=== PATIENT | male | born 1960 | race Caucasian/White ===

== ENCOUNTER 2017-09-12 16:31 | Emergency (ER) | payer MEDICAID ==
[~2017-09-12] VITALS: Ht 604 cm; Wt 77.0 kg
[~2017-09-12 16:31] MED LIST: NO HOME MEDS
[2017-09-12 16:41] VITALS: BP 117/77
[2017-09-12] MEDS ORDERED: AMOX-419 PO (17:45)
== END 2017-09-12 17:49 | disposition home or self-care (01) ==
LOC: ER 16:32
DX: J32.0 Chronic maxillary sinusitis (principal); F15.90 Other stimulant use, unspecified, uncomplicated; K21.9 Gastro-esophageal reflux disease without esophagitis; Z79.899 Other long term (current) drug therapy; Z56.0 Unemployment, unspecified
CPT/HCPCS: 70220; 99284

== ENCOUNTER 2019-12-17 12:26 | Emergency (ER) | payer MEDICAID ==
[~2019-12-17] VITALS: Ht 175.3 cm; Wt 72.0 kg
--- NOTE | 2019-12-17 14:42 | NUR ---
PT DOING WELL WITH APPLE SAUCE AND CRACKERS. NOW EATING A SANDWICH.
[2019-12-17] MEDS ORDERED: MIDAZolam 5mg/5ml vial ONE (17:03)
[2019-12-17] MEDS ORDERED: fentaNYL/PF 50MCG/1 ML 2ML syringe ONE (17:03)
[2019-12-17] MEDS ORDERED: LIDOcaine Viscous 15ml cup ONE (17:04)
[2019-12-17 17:10] VITALS: BP 115/69
--- NOTE | 2019-12-17 17:14 | NUR ---
PT IS GOING TO GI LAB TO HAVE SCOPE OF THROAT. IV STARTED. PT WILL COME BACK WHEN DONE. DID NOT KEEP SANDWICH DOWN.
--- NOTE | 2019-12-17 18:03 | NUR ---
pt is back from GI lab and they were not able to do the procedure due to the pt having had some food before going. pt was told that if he comes in at 7am tomorrow then they can do the scope at 8:30am as long as he has not had any food.
== END 2019-12-17 18:19 | disposition home or self-care (01) ==
LOC: ER 12:27
DX: R13.10 Dysphagia, unspecified (principal); K21.9 Gastro-esophageal reflux disease without esophagitis; F41.9 Anxiety disorder, unspecified; F32.9 Major depressive disorder, single episode, unspecified; F15.90 Other stimulant use, unspecified, uncomplicated; Z59.0 Homelessness; Z56.0 Unemployment, unspecified; Z72.89 Other problems related to lifestyle
CPT/HCPCS: 99283; J2250; J3010; J7040; 99281; A4620

== ENCOUNTER 2020-01-08 20:28 | Emergency (ER) | payer MEDICAID ==
[~2020-01-08] VITALS: Ht 175.3 cm; Wt 79.0 kg
[2020-01-08 20:48] VITALS: BP 121/80
--- NOTE | 2020-01-08 21:54 | NUR ---
PT SEEN AND DC'D BY PROVIDER
== END 2020-01-08 21:54 | disposition home or self-care (01) ==
LOC: ER 20:29
DX: F15.90 Other stimulant use, unspecified, uncomplicated (principal); K21.9 Gastro-esophageal reflux disease without esophagitis; F41.9 Anxiety disorder, unspecified; F32.9 Major depressive disorder, single episode, unspecified; Z98.890 Other specified postprocedural states; Z72.89 Other problems related to lifestyle; Z56.0 Unemployment, unspecified; Z59.0 Homelessness
CPT/HCPCS: 99281

== ENCOUNTER 2020-01-18 10:55 | Observation (INO) | payer MEDICAID ==
[~2020-01-18] VITALS: Ht 175.3 cm; Wt 78.6 kg
[2020-01-18] VITALS (13 sets, daily range): BP systolic 110–140; BP diastolic 61–83
[2020-01-18] MEDS ORDERED: magnesium 2GM in 50ml NS 50 ML IV PRN (12:45)
[2020-01-18] MEDS ORDERED: normal saline 1000ML IV soln IVB ONE (12:45)
[2020-01-18] MEDS ORDERED: magnesium hydroxide 30ml (MOM) UD suspension PO PRN (12:45)
[2020-01-18] MEDS ORDERED: pantoprazole 40 MG vial IV SCH (12:45)
[2020-01-18] MEDS ORDERED: mag hydrox/Alum hydrox/simeth 30ml oral suspension PO PRN (12:45)
[2020-01-18] MEDS ORDERED: magnesium Cl slow-release 64mg tablet PO PRN (12:45)
[2020-01-18] MEDS: normal saline 1000ml 1,000 ML IV SCH ×2 (12:45→22:45)
[2020-01-18] MEDS ORDERED: magnesium 4gm in 100ml NS 100 ML IV PRN (12:45)
[2020-01-18] MEDS ORDERED: acetaminophen 325mg tablet PO PRN ×2 (12:45)
[2020-01-18] MEDS ORDERED: potassium Cl 20 mEq SR tablet PO PRN ×2 (12:45)
[2020-01-18] MEDS ORDERED: potassium CL 10mEq/100ml bag 100 ML IV PRN ×2 (12:45)
[2020-01-18] MEDS ORDERED: ondansetron/PF 4mg/2ml inj IV PRN (12:45)
[2020-01-18 12:57] LABS: BASOPHILS # (AUTO) 0.1 X10'3 (0-0.2); BASOPHILS % (AUTO) 1.2 % (0-1); EOSINOPHILS # (AUTO) 0.1 X10'3 (0-0.9); EOSINOPHILS % (AUTO) 1.6 % (0-6); HEMATOCRIT 35.7 % (42.0-52.0); HEMOGLOBIN 11.3 g/dl (14.0-17.9); LYMPHOCYTES % (AUTO) 26.4 % (21-51); MEAN CORPUSCULAR HGB CONC 31.7 g/dL (33.0-36.5); MEAN CORPUSCULAR VOLUME 81.9 FL (78-98); MEAN PLATELET VOLUME 7.2 FL (7.4-10.4); MONOCYTES # (AUTO) 0.6 X10'3 (0-0.9); NEUTROPHILS # (AUTO) 4.8 X10'3 (1.8-7.7); NEUTROPHILS % (AUTO) 62.8 % (42-75); PLATELET COUNT 425 X10'3 (140-440); RED BLOOD COUNT 4.37 X10'6 (4.70-6.10); RED CELL DISTRIBUTION WIDTH 21.2 % (11.5-14.5); WHITE BLOOD COUNT 7.6 X10'3 (4.5-11.0)
[2020-01-18 13:12] LABS: PARTIAL THROMBOPLASTIN TIME 24 SECONDS (22-32)
[2020-01-18 13:14] LABS: ALANINE AMINOTRANSFERASE 30 U/L (12-78); ALBUMIN 3.6 G/DL (3.4-5.0); ALBUMIN/GLOBULIN RATIO 0.9 (1.1-1.5); ALKALINE PHOSPHATASE 63 IU/L (46-116); ANION GAP 10 (8-16); ASPARTATE AMINO TRANSFERASE 25 U/L (10-37); BILIRUBIN,TOTAL 0.3 MG/DL (0.1-1.0); BLOOD UREA NITROGEN 8 MG/DL (7-18); BUN/CREATININE RATIO 8.8 (5.4-32.0); CALCIUM 9.2 MG/DL (8.5-10.1); CHLORIDE 106 MMOL/L (99-107); CREATININE 0.91 MG/DL (0.60-1.10); GLUCOSE 87 MG/DL (70-104); POTASSIUM 4.3 MMOL/L (3.5-5.1); SODIUM 143 MMOL/L (135-145); TOTAL PROTEIN 7.7 G/DL (6.4-8.2); eGFR 85 ML/MIN
[2020-01-18 13:20] LABS: CLARITY,URINE CLEAR (Clear); COLOR,URINE STRAW (Yellow); GLUCOSE, URINE NEGATIVE (Neg); KETONES,URINE NEGATIVE (Neg); LEUKOCYTE ESTERASE ,URINE NEGATIVE (Neg); NITRITES, URINE NEGATIVE (Neg); OCCULT BLOOD,URINE NEGATIVE (Neg); PROTEIN,URINE NEGATIVE (Neg); UROBILINOGEN,URINE 0.2 E.U/dL (0.2-1.0)
[2020-01-18 13:23] LABS: UA COLLECTION TYPE URINAL
--- NOTE | 2020-01-18 14:01 | NUR ---
called to give report rn unavaliable
[2020-01-18 14:12] LABS: H PYLORI ANTIBODY NEGATIVE (Neg)
--- NOTE | 2020-01-18 14:20 | NUR ---
Patient in room [facility] 346. I have received report from Vern VELASQUEZ and had the opportunity to ask questions and assume patient care.
--- NOTE | 2020-01-18 14:45 | NUR ---
Pt going to IG lab for an EGS with Dr Carroll.
[2020-01-18] MEDS ORDERED: fentaNYL/PF 50MCG/1 ML 2ML syringe ONE (15:29)
[2020-01-18] MEDS ORDERED: MIDAZolam 5mg/5ml vial ONE (15:29)
[2020-01-18] MEDS ORDERED: LIDOcaine Viscous 15ml cup ONE (15:30)
--- NOTE | 2020-01-18 17:30 | NUR ---
Pt back from GI lab.
--- NOTE | 2020-01-18 18:53 | NUR ---
Problems reprioritized. Patient report given, questions answered & plan of care reviewed with Naomi VELASQUEZ.
[2020-01-18] MEDS: pantoprazole 40MG/NS 100ML BAG 100 ML IV SCH (19:23)
[2020-01-18] MEDS: K and/or MAG REPLACEMENT MC SCH (20:00)
[2020-01-18] MEDS ORDERED: temazepam 15mg capsule PO PRN (21:00)
[2020-01-19] MEDS: pantoprazole 40MG/NS 100ML BAG 100 ML IV SCH ×4 (00:08→08:54)
[2020-01-19 04:00] VITALS: BP 111/73
[2020-01-19 05:24] LABS: HEMATOCRIT 31.9 % (42.0-52.0); HEMOGLOBIN 10.1 g/dl (14.0-17.9); MEAN CORPUSCULAR HGB CONC 31.7 g/dL (33.0-36.5); MEAN CORPUSCULAR VOLUME 81.9 FL (78-98); MEAN PLATELET VOLUME 7.3 FL (7.4-10.4); PLATELET COUNT 368 X10'3 (140-440); RED BLOOD COUNT 3.89 X10'6 (4.70-6.10); RED CELL DISTRIBUTION WIDTH 20.4 % (11.5-14.5); WHITE BLOOD COUNT 7.3 X10'3 (4.5-11.0)
--- NOTE | 2020-01-19 06:10 | NUR ---
Problems reprioritized. Patient report given, questions answered & plan of care reviewed with Sharon VELASQUEZ. Addendum: 01/19/20 at 0611 by Naomi Gu RN Amended: Links added.
[2020-01-19 06:20] LABS: ALBUMIN 2.9 G/DL (3.4-5.0); ANION GAP 7 (8-16); BLOOD UREA NITROGEN 7 MG/DL (7-18); BUN/CREATININE RATIO 7.6 (5.4-32.0); CALCIUM 8.7 MG/DL (8.5-10.1); CHLORIDE 109 MMOL/L (99-107); CHOL/HDL RATIO 2.8 (0.00-4.99); CHOLESTEROL 163 MG/DL (0-200); CREATININE 0.92 MG/DL (0.60-1.10); GLUCOSE 86 MG/DL (70-104); HDL CHOLESTEROL 58 MG/DL (35-60); LDL CHOLESTEROL 99 MG/DL (50-100); POTASSIUM 4.2 MMOL/L (3.5-5.1); SODIUM 143 MMOL/L (135-145); TOTAL CARBON DIOXIDE 27.1 MMOL/L (24-32); TRIGLYCERIDES 63 MG/DL (20-135); eGFR 84 ML/MIN
--- NOTE | 2020-01-19 06:41 | NUR ---
Patient in room [facility] 346. I have received report from EVA Salgado and had the opportunity to ask questions and assume patient care.
[2020-01-19 08:00] VITALS: BP 113/76
[2020-01-19] MEDS: K and/or MAG REPLACEMENT MC SCH ×2 (08:00→19:08)
[2020-01-19] MEDS: normal saline 1000ml 1,000 ML IV SCH (08:45)
[2020-01-19 12:00] VITALS: BP 112/73
[2020-01-19] MEDS ORDERED: guaiFENesin/DM 10ml UD oral syrup PO PRN (12:05)
--- NOTE | 2020-01-19 12:55 | NUR ---
Pt admit with dysphagia. Per MD note pt s/p EGD with findings of severe reflux esophagitis, receiving Protonix. Patient's diet was advanced to full liquids. No documentation of PO intake however pt tolerated PO intake well at breakfast this morning per physical assessment. Will continue to follow and monitor need for nutrition intervention. Addendum: 01/19/20 at [address] Amended: Links added.
--- NOTE | 2020-01-19 14:31 | NUR ---
pt rossi protonix was D/C and switched to oral protonix per MD order. Pt tolerated well. Will continue to assess
--- NOTE | 2020-01-19 14:56 | NUR ---
Problems reprioritized. Patient report given, questions answered & plan of care reviewed with EVA Robbins.
--- NOTE | 2020-01-19 15:27 | NUR ---
Pt transported to ortho floor, room 4010B, via wheelchair with all belongings.
--- NOTE | 2020-01-19 15:35 | NUR ---
Pt transferred to ortho/neuro 4010 and was received by the receiving nurse. Pt was oriented to room by receiving nurse with all his belongings and his chart.
[2020-01-19 18:00] VITALS: BP 112/67
--- NOTE | 2020-01-19 18:21 | NUR ---
Problems reprioritized. Patient report given, questions answered & plan of care reviewed with Luh Shipley RN.
[2020-01-19] MEDS: pantoprazole 40mg Tablet.DR PO SCH ×2 (19:09→19:21)
[2020-01-19 22:00] VITALS: BP 108/67
[2020-01-20 05:44] LABS: HEMATOCRIT 31.9 % (42.0-52.0); HEMOGLOBIN 10.4 g/dl (14.0-17.9); MEAN CORPUSCULAR HEMOGLOBIN 26.8 PG (27.0-31.0); MEAN CORPUSCULAR HGB CONC 32.7 g/dL (33.0-36.5); MEAN CORPUSCULAR VOLUME 81.9 FL (78-98); MEAN PLATELET VOLUME 7.2 FL (7.4-10.4); PLATELET COUNT 330 X10'3 (140-440); RED BLOOD COUNT 3.89 X10'6 (4.70-6.10); RED CELL DISTRIBUTION WIDTH 20.8 % (11.5-14.5); WHITE BLOOD COUNT 7.4 X10'3 (4.5-11.0)
[2020-01-20 05:46] LABS: CHLORIDE 106 MMOL/L (99-107); POTASSIUM 4.4 MMOL/L (3.5-5.1); SODIUM 142 MMOL/L (135-145)
[2020-01-20 06:00] VITALS: BP 114/69
[2020-01-20 06:24] LABS: ANION GAP 9 (8-16); BLOOD UREA NITROGEN 5 MG/DL (7-18); BUN/CREATININE RATIO 5.1 (5.4-32.0); CALCIUM 8.9 MG/DL (8.5-10.1); CREATININE 0.99 MG/DL (0.60-1.10); GLUCOSE 91 MG/DL (70-104); eGFR 77 ML/MIN
--- NOTE | 2020-01-20 06:29 | NUR ---
Problems reprioritized. Patient report given, questions answered & plan of care reviewed with EVA Amos.
--- NOTE | 2020-01-20 06:41 | NUR ---
Patient in room ORTHO 4010B. I have received report from EVA AGUILA and had the opportunity to ask questions and assume patient care.
[2020-01-20] MEDS: K and/or MAG REPLACEMENT MC SCH ×2 (08:00→20:00)
[2020-01-20 10:00] VITALS: BP 104/64
[2020-01-20] MEDS: sertraline 50mg tablet PO SCH (11:24)
[2020-01-20] MEDS: pantoprazole 40mg Tablet.DR PO SCH ×2 (11:24→19:34)
[2020-01-20 18:00] VITALS: BP 119/69
--- NOTE | 2020-01-20 18:20 | NUR ---
Patient in room ORTHO 4010. I have received report from Bette VELASQUEZ and had the opportunity to ask questions and assume patient care.
--- NOTE | 2020-01-20 18:48 | NUR ---
Problems reprioritized. Patient report given, questions answered & plan of care reviewed with EVA AGARWAL.
[2020-01-20 22:00] VITALS: BP 116/59
[2020-01-21 06:00] VITALS: BP 126/85
[2020-01-21 06:04] LABS: HEMATOCRIT 35.1 % (42.0-52.0); HEMOGLOBIN 11.3 g/dl (14.0-17.9); MEAN CORPUSCULAR HEMOGLOBIN 26.2 PG (27.0-31.0); MEAN CORPUSCULAR HGB CONC 32.2 g/dL (33.0-36.5); MEAN CORPUSCULAR VOLUME 81.2 FL (78-98); MEAN PLATELET VOLUME 7.1 FL (7.4-10.4); PLATELET COUNT 356 X10'3 (140-440); RED BLOOD COUNT 4.32 X10'6 (4.70-6.10); WHITE BLOOD COUNT 8.8 X10'3 (4.5-11.0)
--- NOTE | 2020-01-21 06:10 | NUR ---
Problems reprioritized. Patient report given, questions answered & plan of care reviewed with Elsy VELASQUEZ.
[2020-01-21 06:11] LABS: ALBUMIN 3.1 G/DL (3.4-5.0); ANION GAP 9 (8-16); BLOOD UREA NITROGEN 10 MG/DL (7-18); BUN/CREATININE RATIO 11.5 (5.4-32.0); CALCIUM 9.1 MG/DL (8.5-10.1); CHLORIDE 103 MMOL/L (99-107); CREATININE 0.87 MG/DL (0.60-1.10); GLUCOSE 97 MG/DL (70-104); MAGNESIUM 1.9 MG/DL (1.5-2.4); SODIUM 138 MMOL/L (135-145); TOTAL CARBON DIOXIDE 26.4 MMOL/L (24-32); eGFR 90 ML/MIN
--- NOTE | 2020-01-21 06:38 | NUR ---
Patient in room ORTHO 4010. I have received report from Ivana VELASQUEZ and had the opportunity to ask questions and assume patient care.
[2020-01-21] MEDS: K and/or MAG REPLACEMENT MC SCH (08:00)
[2020-01-21] MEDS: sertraline 50mg tablet PO SCH (08:34)
[2020-01-21] MEDS: pantoprazole 40mg Tablet.DR PO SCH (08:35)
[2020-01-21 12:00] VITALS: BP 115/73
[2020-01-21] MEDS ORDERED: SERT50TA10 PO (12:46)
[2020-01-21] MEDS ORDERED: PANT40TA54 PO (12:46)
--- NOTE | 2020-01-21 13:45 | NUR ---
Pt DC to [facility], pt A & O x4 and in no apparent distress. Pt verbalizes of all DC orders.IV cath removed intact. DC by resource nurse.
== END 2020-01-21 13:45 | disposition home or self-care (01) ==
LOC: ER 10:56 → ED HOLD 12:45 → SUR 3N 14:42 → ORTHO 4S 01-19 15:30
PROVIDERS: ADMIT Family Medicine; ATTEND Family Medicine
DX: K21.00 Gastro-esophageal reflux disease with esophagitis, without bleeding (principal); K44.9 Diaphragmatic hernia without obstruction or gangrene; R13.10 Dysphagia, unspecified; D50.9 Iron deficiency anemia, unspecified; F32.9 Major depressive disorder, single episode, unspecified; F15.10 Other stimulant abuse, uncomplicated; F10.20 Alcohol dependence, uncomplicated; Z87.891 Personal history of nicotine dependence; Z79.899 Other long term (current) drug therapy
CPT/HCPCS: 36415; 43235; 71045; 80048; 80053; 80061; 81003; 83036; 83735; 84443; 85025; 85027; 85610; 85730; 86677; 87081; 96361; 96365; 96366; 96376; 99284; C9113; G0378; J2250; J3010; J7030; J7040; 99152; A4620

== ENCOUNTER 2020-05-15 12:39 | Emergency (ER) | payer MEDICAID ==
[~2020-05-15] VITALS: Ht 175.3 cm; Wt 92.7 kg
[~2020-05-15 12:39] MED LIST changes: -NO HOME MEDS; +PANT40TA54 PO; +SERT-433 PO
--- NOTE | 2020-05-15 13:38 | NUR ---
SECURITY COLLECTED THE ALCOHOL FROM PATIENT, STORED AT [employer] DESK.
[2020-05-15] MEDS ORDERED: magnesium 2GM in 50ml NS 50 ML IV ONE (14:35)
[2020-05-15] MEDS ORDERED: normal saline 1000ML IV soln IVB ONE (14:35)
[2020-05-15] MEDS ORDERED: famotidine/PF 10 mg/ml inj IV ONE (14:35)
[2020-05-15] MEDS ORDERED: phenobarbital inj 260 MG in normal saline 100ml IV soln 100 ML IV ONE (14:35)
[2020-05-15] MEDS ORDERED: pantoprazole 40 MG vial IV ONE (14:35)
[2020-05-15] MEDS ORDERED: thiamine inj. 100 MG in normal saline 100ml IV soln 99 ML IV ONE (14:35)
[2020-05-15] MEDS ORDERED: phenobarbital inj 260 MG in normal saline 100ml IV soln 98 ML IV ONE (14:40)
[2020-05-15] MEDS ORDERED: thiamine inj. 100 MG in normal saline 100ml IV soln 100 ML IV ONE (14:45)
[2020-05-15 15:03] LABS: BASOPHILS # (AUTO) 0.1 X10'3 (0-0.2); BASOPHILS % (AUTO) 0.9 % (0-1); EOSINOPHILS # (AUTO) 0.1 X10'3 (0-0.9); EOSINOPHILS % (AUTO) 1.1 % (0-6); HEMATOCRIT 32.3 % (42.0-52.0); HEMOGLOBIN 10.3 g/dl (14.0-17.9); LYMPHOCYTES # (AUTO) 1.6 X10'3 (1.1-4.8); LYMPHOCYTES % (AUTO) 28.8 % (21-51); MEAN CORPUSCULAR HEMOGLOBIN 24.4 PG (27.0-31.0); MEAN CORPUSCULAR HGB CONC 31.9 g/dL (33.0-36.5); MEAN CORPUSCULAR VOLUME 76.5 FL (78-98); MONOCYTES # (AUTO) 0.3 X10'3 (0-0.9); MONOCYTES % (AUTO) 6.1 % (2-12); NEUTROPHILS # (AUTO) 3.4 X10'3 (1.8-7.7); NEUTROPHILS % (AUTO) 63.1 % (42-75); PLATELET COUNT 294 X10'3 (140-440); RED BLOOD COUNT 4.23 X10'6 (4.70-6.10); RED CELL DISTRIBUTION WIDTH 19.6 % (11.5-14.5); WHITE BLOOD COUNT 5.5 X10'3 (4.5-11.0)
[2020-05-15 15:12] LABS: ALANINE AMINOTRANSFERASE 26 U/L (12-78); ALBUMIN 3.6 G/DL (3.4-5.0); ALKALINE PHOSPHATASE 72 IU/L (46-116); ANION GAP 8 (8-16); ASPARTATE AMINO TRANSFERASE 28 U/L (10-37); BILIRUBIN,TOTAL 0.2 MG/DL (0.1-1.0); BLOOD UREA NITROGEN 11 MG/DL (7-18); BUN/CREATININE RATIO 14.5 (5.4-32.0); CALCIUM 8.8 MG/DL (8.5-10.1); CHLORIDE 107 MMOL/L (99-107); CREATININE 0.76 MG/DL (0.60-1.10); ETHANOL 0.297 GM/DL (0.0-0.010); GLUCOSE 100 MG/DL (70-104); MAGNESIUM 2.3 MG/DL (1.5-2.4); POTASSIUM 3.4 MMOL/L (3.5-5.1); SODIUM 143 MMOL/L (135-145); TOTAL CARBON DIOXIDE 27.8 MMOL/L (24-32); TOTAL PROTEIN 7.1 G/DL (6.4-8.2); eGFR > 90 ML/MIN
[2020-05-15 15:18] LABS: ANISOCYTOSIS 2+; MICROCYTOSIS 1+; PLATELET ESTIMATE NORMAL
[2020-05-15 15:20] LABS: ELLIPTOCYTES FEW
[2020-05-15 17:34] VITALS: BP 139/89
[2020-05-16] MEDS ORDERED: CHLO25CA10 PO (18:42)
== END 2020-05-15 18:07 | disposition home or self-care (01) ==
LOC: ER 12:39
DX: F10.129 Alcohol abuse with intoxication, unspecified (principal); K21.9 Gastro-esophageal reflux disease without esophagitis; F41.9 Anxiety disorder, unspecified; F32.9 Major depressive disorder, single episode, unspecified; Z59.0 Homelessness; Z98.890 Other specified postprocedural states; Z72.89 Other problems related to lifestyle; Z56.0 Unemployment, unspecified; Z79.899 Other long term (current) drug therapy; Y90.9 Presence of alcohol in blood, level not specified
CPT/HCPCS: 36415; 80053; 80320; 82948; 83735; 85008; 85025; 93005; 96365; 96367; 96375; 99285; C9113; J2560; J3411; J3475; J3490; J7030

== ENCOUNTER 2020-05-16 14:07 | Emergency (ER) | payer MEDICAID ==
[~2020-05-16] VITALS: Ht 175.3 cm; Wt 88.6 kg
[2020-05-16] MEDS ORDERED: chlordiazePOXIDE 25mg capsule PO ONE (16:10)
--- NOTE | 2020-05-16 18:23 | NUR ---
CALLED [facility] AT 1823 ETA 15-20 MINS
[2020-05-16] MEDS ORDERED: CHLO25CA10 PO (18:42)
[2020-05-16 18:46] VITALS: BP 93/61
== END 2020-05-16 21:54 | disposition home or self-care (01) ==
LOC: ER 14:08
DX: F10.129 Alcohol abuse with intoxication, unspecified (principal); R47.81 Slurred speech; K21.9 Gastro-esophageal reflux disease without esophagitis; F41.9 Anxiety disorder, unspecified; F32.9 Major depressive disorder, single episode, unspecified; Z72.89 Other problems related to lifestyle; Z98.890 Other specified postprocedural states; Z59.0 Homelessness; Z56.0 Unemployment, unspecified; Z79.899 Other long term (current) drug therapy; Y90.9 Presence of alcohol in blood, level not specified
CPT/HCPCS: 99285

== ENCOUNTER 2020-05-17 00:35 | Emergency (ER) | payer MEDICAID ==
[~2020-05-17] VITALS: Ht 175.3 cm; Wt 75.2 kg
[~2020-05-17 00:35] MED LIST changes: +CHLO25CA10 PO
--- NOTE | 2020-05-17 00:38 | NUR ---
WHILE TRIAGING PT HE PRESENTED VERY INTOXICATED UNSTEADY IN HIS FEET WHILE WALKING INTO THE TRIAGE ROOM. WHILE TALKING NOT MAKING ANY SENSE OF HIS ANSWERS TO MY QUESTIONS HE WOULD GO OFF ON WHOLE OTHER DIFFERENT SUBJECTS. PT HAD A CAN OR SARDINES AND I ASKED HIM TO PUT IT DOWN WHILE I TOOK HIS VITALS HE SAID "YOU DONT WANT THEM? I SAID NO THANKS AND HE SAID NO WOMEN WANTS SARDINES! PT WAS PLACED BACK IN LOBBY AFTER TRIAGE AWAITING A ROOM
--- NOTE | 2020-05-17 01:18 | NUR ---
He was in the lobby and turned around and told security and registration "Jules katz" Security informed me that they weren't even talking or saying anything to him.
--- NOTE | 2020-05-17 03:46 | NUR ---
Patient lying in bed sleeping. Per MD patient can be on pulse ox only if he tolerates. patient is resting well and no signs of distress.
[2020-05-17 06:46] VITALS: BP 129/85
[2020-05-17 07:07] LABS: ALBUMIN 3.4 G/DL (3.4-5.0); ANION GAP 11 (8-16); BLOOD UREA NITROGEN 10 MG/DL (7-18); BUN/CREATININE RATIO 10.2 (5.4-32.0); CALCIUM 8.9 MG/DL (8.5-10.1); CHLORIDE 111 MMOL/L (99-107); CREATININE 0.98 MG/DL (0.60-1.10); GLUCOSE 117 MG/DL (70-104); POTASSIUM 3.6 MMOL/L (3.5-5.1); SODIUM 148 MMOL/L (135-145); TOTAL CARBON DIOXIDE 25.9 MMOL/L (24-32); eGFR 78 ML/MIN
== END 2020-05-17 07:42 | disposition home or self-care (01) ==
LOC: ER 00:35
DX: F10.129 Alcohol abuse with intoxication, unspecified (principal); M79.641 Pain in right hand; M79.642 Pain in left hand; Z59.0 Homelessness; Y90.9 Presence of alcohol in blood, level not specified
CPT/HCPCS: 36415; 80048; 82948; 99285

== ENCOUNTER 2020-05-17 19:13 | Emergency (ER) | payer MEDICAID ==
[~2020-05-17] VITALS: Ht 175.3 cm; Wt 71.2 kg
[2020-05-17 19:26] VITALS: BP 106/73
--- NOTE | 2020-05-17 20:03 | NUR ---
jessica ambulatory in [facility] to room. patient reports falling down on the street today. Patient is alert and oriented x 4. Patient vital signs stable, no signs of distress.
== END 2020-05-17 21:45 | disposition home or self-care (01) ==
LOC: ER 19:13
DX: F10.129 Alcohol abuse with intoxication, unspecified (principal); K21.9 Gastro-esophageal reflux disease without esophagitis; F41.9 Anxiety disorder, unspecified; F32.9 Major depressive disorder, single episode, unspecified; Z59.0 Homelessness; Z56.0 Unemployment, unspecified; Z79.899 Other long term (current) drug therapy; Y90.9 Presence of alcohol in blood, level not specified
CPT/HCPCS: 99283

== ENCOUNTER 2020-05-19 05:37 | Emergency (ER) | payer MEDICAID ==
[~2020-05-19] VITALS: Ht 175.3 cm; Wt 75.0 kg
[2020-05-19 06:21] LABS: ALBUMIN 3.6 G/DL (3.4-5.0); ANION GAP 8 (8-16); BLOOD UREA NITROGEN 12 MG/DL (7-18); BUN/CREATININE RATIO 12.8 (5.4-32.0); CALCIUM 8.5 MG/DL (8.5-10.1); CHLORIDE 107 MMOL/L (99-107); CREATININE 0.94 MG/DL (0.60-1.10); GLUCOSE 97 MG/DL (70-104); POTASSIUM 3.8 MMOL/L (3.5-5.1); SODIUM 143 MMOL/L (135-145); TOTAL CARBON DIOXIDE 28.1 MMOL/L (24-32); eGFR 82 ML/MIN
[2020-05-19 06:22] LABS: ETHANOL 0.301 GM/DL (0.0-0.010)
[2020-05-19 14:32] VITALS: BP 149/89
== END 2020-05-19 14:37 | disposition home or self-care (01) ==
LOC: ER 05:42
DX: F10.120 Alcohol abuse with intoxication, uncomplicated (principal); R53.1 Weakness; F10.10 Alcohol abuse, uncomplicated; K21.9 Gastro-esophageal reflux disease without esophagitis; Z59.0 Homelessness; Z56.0 Unemployment, unspecified; Y90.8 Blood alcohol level of 240 mg/100 ml or more
CPT/HCPCS: 36415; 80048; 80320; 99285

== ENCOUNTER 2020-05-23 21:36 | Emergency (ER) | payer MEDICAID ==
[~2020-05-23] VITALS: Ht 175.3 cm; Wt 90.0 kg
[2020-05-23 23:20] LABS: BASOPHILS % (AUTO) 0.3 % (0-1); EOSINOPHILS # (AUTO) 0.2 X10'3 (0-0.9); EOSINOPHILS % (AUTO) 2.8 % (0-6); HEMATOCRIT 31.7 % (42.0-52.0); HEMOGLOBIN 10.2 g/dl (14.0-17.9); LYMPHOCYTES # (AUTO) 0.9 X10'3 (1.1-4.8); LYMPHOCYTES % (AUTO) 12.1 % (21-51); MEAN CORPUSCULAR HEMOGLOBIN 24.7 PG (27.0-31.0); MEAN CORPUSCULAR HGB CONC 32.1 g/dL (33.0-36.5); MEAN CORPUSCULAR VOLUME 76.9 FL (78-98); MEAN PLATELET VOLUME 7.1 FL (7.4-10.4); MONOCYTES # (AUTO) 0.4 X10'3 (0-0.9); MONOCYTES % (AUTO) 5.3 % (2-12); NEUTROPHILS # (AUTO) 5.6 X10'3 (1.8-7.7); NEUTROPHILS % (AUTO) 79.5 % (42-75); PLATELET COUNT 173 X10'3 (140-440); RED BLOOD COUNT 4.12 X10'6 (4.70-6.10); RED CELL DISTRIBUTION WIDTH 20.7 % (11.5-14.5); WHITE BLOOD COUNT 7.1 X10'3 (4.5-11.0)
[2020-05-23 23:51] LABS: D-DIMER 0.56 MG/L FEU (0-0.50); PARTIAL THROMBOPLASTIN TIME 25 SECONDS (22-32)
[2020-05-23 23:55] LABS: ANISOCYTOSIS 3+; ELLIPTOCYTES FEW; MICROCYTOSIS 1+; PLATELET ESTIMATE NORMAL
[2020-05-23 23:59] LABS: URINE AMPHETAMINE SCREEN NEGATIVE (Neg); URINE BARBITUATE SCREEN POSITIVE (Neg); URINE BENZODIAZEPINES SCREEN POSITIVE (Neg); URINE CANNABINOID SCREEN NEGATIVE (Neg); URINE COCAINE SCREEN NEGATIVE (Neg); URINE METHADONE SCREEN NEGATIVE (Neg); URINE OPIATE SCREEN NEGATIVE (Neg); URINE PHENCYCLIDINE SCREEN NEGATIVE (Neg)
[2020-05-24] LABS: ALANINE AMINOTRANSFERASE 38 U/L (12-78); ALBUMIN 3.3 G/DL (3.4-5.0); ALBUMIN/GLOBULIN RATIO 0.9 (1.1-1.5); ALKALINE PHOSPHATASE 95 IU/L (46-116); ANION GAP 7 (8-16); ASPARTATE AMINO TRANSFERASE 53 U/L (10-37); BILIRUBIN,TOTAL 0.3 MG/DL (0.1-1.0); BLOOD UREA NITROGEN 10 MG/DL (7-18); BUN/CREATININE RATIO 11.2 (5.4-32.0); CALCIUM 8.5 MG/DL (8.5-10.1); CHLORIDE 103 MMOL/L (99-107); CREATININE 0.89 MG/DL (0.60-1.10); ETHANOL 0.202 GM/DL (0.0-0.010); GLUCOSE 151 MG/DL (70-104); MAGNESIUM 1.9 MG/DL (1.5-2.4); POTASSIUM 3.2 MMOL/L (3.5-5.1); SODIUM 140 MMOL/L (135-145); TOTAL CARBON DIOXIDE 29.8 MMOL/L (24-32); TOTAL PROTEIN 6.9 G/DL (6.4-8.2); eGFR 87 ML/MIN
--- NOTE | 2020-05-24 01:02 | NUR ---
Helen olmos in [facility] - 05/24/20 at 0102 by KIM sitting sideways in bed eating sandwich refuses
[2020-05-24] MEDS ORDERED: normal saline 1000ML IV soln IVB ONE (01:05)
[2020-05-24 01:13] VITALS: BP 109/61
== END 2020-05-24 02:16 | disposition home or self-care (01) ==
LOC: ER 21:37
DX: F10.129 Alcohol abuse with intoxication, unspecified (principal); R04.2 Hemoptysis; K21.9 Gastro-esophageal reflux disease without esophagitis; F41.9 Anxiety disorder, unspecified; F32.9 Major depressive disorder, single episode, unspecified; Z59.0 Homelessness; Z98.890 Other specified postprocedural states; Z56.0 Unemployment, unspecified; Z79.899 Other long term (current) drug therapy; Y90.0 Blood alcohol level of less than 20 mg/100 ml
CPT/HCPCS: 36415; 71046; 80053; 80305; 80320; 83605; 83735; 83880; 85008; 85025; 85379; 85610; 85730; 87040; 99284; J7030

== ENCOUNTER 2020-07-29 09:10 | Emergency (ER) | payer MEDICAID ==
[~2020-07-29] VITALS: Ht 172.7 cm; Wt 86.0 kg
[2020-07-29] MEDS ORDERED: pantoprazole 40 MG vial IV ONE (09:25)
[2020-07-29] MEDS ORDERED: proCHLORperazine 10 MG/2 ml inj IV ONE (09:25)
[2020-07-29] MEDS ORDERED: normal saline 1000ML IV soln IVB ONE ×2 (09:25→10:50)
[2020-07-29 09:47] LABS: BASOPHILS # (AUTO) 0.1 X10'3 (0-0.2); BASOPHILS % (AUTO) 0.8 % (0-1); EOSINOPHILS # (AUTO) 0.1 X10'3 (0-0.9); EOSINOPHILS % (AUTO) 0.7 % (0-6); HEMATOCRIT 38.8 % (42.0-52.0); HEMOGLOBIN 12.7 g/dl (14.0-17.9); LYMPHOCYTES % (AUTO) 11.8 % (21-51); MEAN CORPUSCULAR HEMOGLOBIN 27.4 PG (27.0-31.0); MEAN CORPUSCULAR HGB CONC 32.7 g/dL (33.0-36.5); MEAN CORPUSCULAR VOLUME 83.8 FL (78-98); MEAN PLATELET VOLUME 7.2 FL (7.4-10.4); MONOCYTES # (AUTO) 0.9 X10'3 (0-0.9); MONOCYTES % (AUTO) 10.6 % (2-12); NEUTROPHILS # (AUTO) 6.6 X10'3 (1.8-7.7); NEUTROPHILS % (AUTO) 76.1 % (42-75); PLATELET COUNT 177 X10'3 (140-440); RED BLOOD COUNT 4.64 X10'6 (4.70-6.10); RED CELL DISTRIBUTION WIDTH 22.3 % (11.5-14.5); WHITE BLOOD COUNT 8.7 X10'3 (4.5-11.0)
[2020-07-29 10:10] LABS: ANISOCYTOSIS 3+; PLATELET ESTIMATE NORMAL
[2020-07-29 10:12] LABS: ALANINE AMINOTRANSFERASE 82 U/L (12-78); ALBUMIN 3.2 G/DL (3.4-5.0); ALBUMIN/GLOBULIN RATIO 0.7 (1.1-1.5); ALKALINE PHOSPHATASE 101 IU/L (46-116); ANION GAP 7 (8-16); ASPARTATE AMINO TRANSFERASE 85 U/L (10-37); BILIRUBIN,TOTAL 0.8 MG/DL (0.1-1.0); BLOOD UREA NITROGEN 22 MG/DL (7-18); BUN/CREATININE RATIO 19.5 (5.4-32.0); CALCIUM 10.3 MG/DL (8.5-10.1); CHLORIDE 98 MMOL/L (99-107); CREATININE 1.13 MG/DL (0.60-1.10); ETHANOL < 0.010 GM/DL (0.0-0.010); GLUCOSE 113 MG/DL (70-104); LIPASE < 50 U/L (73-393); MAGNESIUM 1.7 MG/DL (1.5-2.4); POTASSIUM 3.6 MMOL/L (3.5-5.1); SODIUM 139 MMOL/L (135-145); TOTAL PROTEIN 7.6 G/DL (6.4-8.2); eGFR 66 ML/MIN
[2020-07-29] MEDS ORDERED: folic acid 1mg/0.2ml inj IV ONE (10:50)
[2020-07-29] MEDS ORDERED: thiamine 100mg/ml 2ml inj. IV ONE (10:50)
[2020-07-29] MEDS ORDERED: LORazepam 2 mg/ml vial IV ONE (11:40)
[2020-07-29] MEDS ORDERED: LIDOcaine Viscous 15ml cup MM ONE (11:40)
[2020-07-29] MEDS ORDERED: mag hydrox/Alum hydrox/simeth 30ml oral suspension PO ONE (11:40)
[2020-07-29] MEDS ORDERED: GABA300C PO (17:08)
[2020-07-29] MEDS ORDERED: PANT20TA18 PO (17:08)
[2020-07-29 17:19] VITALS: BP 121/86
== END 2020-07-29 17:33 | disposition home or self-care (01) ==
LOC: ER 09:11
DX: F10.10 Alcohol abuse, uncomplicated (principal); R11.2 Nausea with vomiting, unspecified; K21.9 Gastro-esophageal reflux disease without esophagitis; F41.9 Anxiety disorder, unspecified; F32.9 Major depressive disorder, single episode, unspecified; Z59.0 Homelessness; Z56.0 Unemployment, unspecified; Z98.890 Other specified postprocedural states; Z79.899 Other long term (current) drug therapy; Y90.9 Presence of alcohol in blood, level not specified
CPT/HCPCS: 36415; 80053; 80320; 83690; 83735; 85008; 85025; 93005; 96361; 96374; 96375; 99284; C9113; J0780; J2060; J3411; J3490; J7030

== ENCOUNTER 2020-08-14 15:18 | Emergency (ER) | payer MEDICAID ==
[~2020-08-14] VITALS: Ht 175.3 cm; Wt 88.6 kg
[~2020-08-14 15:18] MED LIST changes: +GABA300C PO; +PANT20TA18 PO
[2020-08-14 15:31] VITALS: BP 139/95
[2020-08-14 17:02] LABS: BASOPHILS % (AUTO) 0.5 % (0-1); EOSINOPHILS % (AUTO) 0.2 % (0-6); LYMPHOCYTES # (AUTO) 0.6 X10'3 (1.1-4.8); MEAN CORPUSCULAR HEMOGLOBIN 27.6 PG (27.0-31.0); MEAN CORPUSCULAR HGB CONC 32.4 g/dL (33.0-36.5); MEAN CORPUSCULAR VOLUME 85.2 FL (78-98); MEAN PLATELET VOLUME 6.5 FL (7.4-10.4); MONOCYTES # (AUTO) 0.8 X10'3 (0-0.9); MONOCYTES % (AUTO) 12.1 % (2-12); NEUTROPHILS # (AUTO) 5.3 X10'3 (1.8-7.7); NEUTROPHILS % (AUTO) 78.2 % (42-75); PLATELET COUNT 285 X10'3 (140-440); RED BLOOD COUNT 4.34 X10'6 (4.70-6.10); RED CELL DISTRIBUTION WIDTH 22.1 % (11.5-14.5); WHITE BLOOD COUNT 6.8 X10'3 (4.5-11.0)
[2020-08-14 17:11] LABS: D-DIMER 0.49 MG/L FEU (0-0.50)
[2020-08-14 17:16] LABS: ALANINE AMINOTRANSFERASE 64 U/L (12-78); ALBUMIN 3.7 G/DL (3.4-5.0); ALBUMIN/GLOBULIN RATIO 0.8 (1.1-1.5); ALKALINE PHOSPHATASE 102 IU/L (46-116); ANION GAP 15 (8-16); ASPARTATE AMINO TRANSFERASE 77 U/L (10-37); BILIRUBIN,TOTAL 1.3 MG/DL (0.1-1.0); BLOOD UREA NITROGEN 10 MG/DL (7-18); BUN/CREATININE RATIO 11.4 (5.4-32.0); CHLORIDE 98 MMOL/L (99-107); CREATININE 0.88 MG/DL (0.60-1.10); GLUCOSE 93 MG/DL (70-104); POTASSIUM 3.9 MMOL/L (3.5-5.1); SODIUM 135 MMOL/L (135-145); TOTAL CARBON DIOXIDE 22.1 MMOL/L (24-32); TOTAL PROTEIN 8.4 G/DL (6.4-8.2); eGFR 89 ML/MIN
== END 2020-08-14 17:53 | disposition home or self-care (01) ==
LOC: ER 15:20
DX: M25.561 Pain in right knee (principal); M25.562 Pain in left knee; K21.9 Gastro-esophageal reflux disease without esophagitis; F41.9 Anxiety disorder, unspecified; F32.9 Major depressive disorder, single episode, unspecified; F10.10 Alcohol abuse, uncomplicated; Z59.0 Homelessness; Z56.0 Unemployment, unspecified; Z98.890 Other specified postprocedural states; Z79.899 Other long term (current) drug therapy; Y90.9 Presence of alcohol in blood, level not specified
CPT/HCPCS: 36415; 80053; 85025; 85379; 99283

== ENCOUNTER 2020-08-31 21:54 | Emergency (ER) | payer MEDICAID ==
[~2020-08-31] VITALS: Ht 175.3 cm; Wt 85.0 kg
[2020-08-31] MEDS ORDERED: FAMO20TA8 PO (22:17)
[2020-08-31] MEDS ORDERED: OMEP20TA23 PO (22:17)
[2020-08-31] MEDS ORDERED: pantoprazole 40 MG vial IV ONE (22:55)
[2020-08-31] MEDS ORDERED: normal saline 1000ML IV soln IVB ONE (22:55)
[2020-08-31 23:00] VITALS: BP 103/75
[2020-08-31 23:17] LABS: BASOPHILS % (AUTO) 0.8 % (0-1); EOSINOPHILS # (AUTO) 0.1 X10'3 (0-0.9); EOSINOPHILS % (AUTO) 2.1 % (0-6); HEMATOCRIT 33.2 % (42.0-52.0); HEMOGLOBIN 10.7 g/dl (14.0-17.9); LYMPHOCYTES # (AUTO) 1.8 X10'3 (1.1-4.8); LYMPHOCYTES % (AUTO) 29.7 % (21-51); MEAN CORPUSCULAR HEMOGLOBIN 27.5 PG (27.0-31.0); MEAN CORPUSCULAR HGB CONC 32.4 g/dL (33.0-36.5); MEAN CORPUSCULAR VOLUME 84.8 FL (78-98); MEAN PLATELET VOLUME 6.6 FL (7.4-10.4); MONOCYTES # (AUTO) 0.8 X10'3 (0-0.9); MONOCYTES % (AUTO) 13.7 % (2-12); NEUTROPHILS # (AUTO) 3.3 X10'3 (1.8-7.7); NEUTROPHILS % (AUTO) 53.7 % (42-75); PLATELET COUNT 290 X10'3 (140-440); RED BLOOD COUNT 3.91 X10'6 (4.70-6.10); RED CELL DISTRIBUTION WIDTH 21.6 % (11.5-14.5); WHITE BLOOD COUNT 6.1 X10'3 (4.5-11.0)
[2020-08-31 23:28] LABS: ALANINE AMINOTRANSFERASE 59 U/L (12-78); ALBUMIN 2.9 G/DL (3.4-5.0); ALBUMIN/GLOBULIN RATIO 0.7 (1.1-1.5); ALKALINE PHOSPHATASE 76 IU/L (46-116); ANION GAP 7 (8-16); ASPARTATE AMINO TRANSFERASE 69 U/L (10-37); BILIRUBIN,TOTAL 0.4 MG/DL (0.1-1.0); BLOOD UREA NITROGEN 15 MG/DL (7-18); BUN/CREATININE RATIO 14.6 (5.4-32.0); CALCIUM 8.1 MG/DL (8.5-10.1); CHLORIDE 93 MMOL/L (99-107); CREATININE 1.03 MG/DL (0.60-1.10); GLUCOSE 87 MG/DL (70-104); POTASSIUM 3.3 MMOL/L (3.5-5.1); SODIUM 128 MMOL/L (135-145); TOTAL CARBON DIOXIDE 27.8 MMOL/L (24-32); TOTAL PROTEIN 7.3 G/DL (6.4-8.2); eGFR 74 ML/MIN
[2020-08-31 23:36] LABS: MAGNESIUM 2.1 MG/DL (1.5-2.4)
[2020-08-31 23:39] LABS: PARTIAL THROMBOPLASTIN TIME 25 SECONDS (22-32)
[2020-09-01 00:16] LABS: LIPASE 133 U/L (73-393)
[2020-09-01] MEDS ORDERED: PANT20TA2 PO (00:41)
== END 2020-09-01 01:48 | disposition home or self-care (01) ==
LOC: ER 21:55
DX: K29.20 Alcoholic gastritis without bleeding (principal); R10.13 Epigastric pain; R11.2 Nausea with vomiting, unspecified; K21.9 Gastro-esophageal reflux disease without esophagitis; F41.9 Anxiety disorder, unspecified; F32.9 Major depressive disorder, single episode, unspecified; Z98.890 Other specified postprocedural states; Z72.89 Other problems related to lifestyle; Z56.0 Unemployment, unspecified; Z59.0 Homelessness; Z79.899 Other long term (current) drug therapy
CPT/HCPCS: 71045; 80053; 83690; 83735; 83880; 84484; 85025; 85610; 85730; 93005; 96361; 96374; 99285; C9113; J7030; 36415

== ENCOUNTER 2020-09-18 09:43 | Emergency (ER) | payer MEDICAID ==
[~2020-09-18] VITALS: Ht 175.3 cm; Wt 84.1 kg
[~2020-09-18 09:43] MED LIST changes: -CHLO25CA10 PO; +FAMO20TA8 PO; -GABA300C PO; +OMEP20TA23 PO; -PANT20TA18 PO; +PANT20TA2 PO; -SERT-433 PO
[2020-09-18] MEDS ORDERED: LORazepam 2 mg/ml vial IV ONE (11:00)
[2020-09-18] MEDS ORDERED: folic acid 1mg tablet PO ONE (11:00)
[2020-09-18] MEDS ORDERED: normal saline 1000ML IV soln IVB ONE (11:00)
[2020-09-18] MEDS ORDERED: thiamine 100mg tablet PO ONE (11:00)
[2020-09-18] MEDS ORDERED: chlordiazePOXIDE 25mg capsule PO ONE (11:00)
[2020-09-18 11:09] LABS: CLARITY,URINE CLEAR (Clear); COLOR,URINE YELLOW (Yellow); GLUCOSE, URINE NEGATIVE (Neg); KETONES,URINE >=80 mg/dl (Neg); LEUKOCYTE ESTERASE ,URINE NEGATIVE (Neg); NITRITES, URINE NEGATIVE (Neg); OCCULT BLOOD,URINE NEGATIVE (Neg); PROTEIN,URINE TRACE mg/dl (Neg); UROBILINOGEN,URINE 0.2 E.U/dL (0.2-1.0)
[2020-09-18 11:13] LABS: UA COLLECTION TYPE URINAL
[2020-09-18 11:15] LABS: BACTERIA,URINE NONE SEEN /HPF (Neg); MUCUS STRANDS NONE SEEN /LPF (Neg); RBC,URINE NONE SEEN /HPF (0-2); SQUAMOUS EPITHELIAL CELL,UR FEW /LPF (FEW); WBC,URINE 0-4 /HPF (0-4)
[2020-09-18 11:18] LABS: BASOPHILS % (AUTO) 0.7 % (0-1); EOSINOPHILS % (AUTO) 0 % (0-6); HEMATOCRIT 28.2 % (42.0-52.0); HEMOGLOBIN 9.3 g/dl (14.0-17.9); LYMPHOCYTES # (AUTO) 0.4 X10'3 (1.1-4.8); LYMPHOCYTES % (AUTO) 9.4 % (21-51); MEAN CORPUSCULAR HGB CONC 32.9 g/dL (33.0-36.5); MEAN CORPUSCULAR VOLUME 85.1 FL (78-98); MEAN PLATELET VOLUME 6.2 FL (7.4-10.4); MONOCYTES # (AUTO) 0.3 X10'3 (0-0.9); MONOCYTES % (AUTO) 7.6 % (2-12); NEUTROPHILS # (AUTO) 3.4 X10'3 (1.8-7.7); NEUTROPHILS % (AUTO) 82.3 % (42-75); PLATELET COUNT 101 X10'3 (140-440); RED BLOOD COUNT 3.31 X10'6 (4.70-6.10); RED CELL DISTRIBUTION WIDTH 22.2 % (11.5-14.5); WHITE BLOOD COUNT 4.1 X10'3 (4.5-11.0)
[2020-09-18 11:22] LABS: URINE AMPHETAMINE SCREEN NEGATIVE (Neg); URINE BARBITUATE SCREEN NEGATIVE (Neg); URINE BENZODIAZEPINES SCREEN NEGATIVE (Neg); URINE CANNABINOID SCREEN NEGATIVE (Neg); URINE COCAINE SCREEN NEGATIVE (Neg); URINE METHADONE SCREEN NEGATIVE (Neg); URINE OPIATE SCREEN NEGATIVE (Neg); URINE PHENCYCLIDINE SCREEN NEGATIVE (Neg)
[2020-09-18 11:31] LABS: ALANINE AMINOTRANSFERASE 40 U/L (12-78); ALBUMIN 3.2 G/DL (3.4-5.0); ALBUMIN/GLOBULIN RATIO 0.8 (1.1-1.5); ALKALINE PHOSPHATASE 78 IU/L (46-116); ANION GAP 14 (8-16); ANISOCYTOSIS 3+; ASPARTATE AMINO TRANSFERASE 57 U/L (10-37); BILIRUBIN,TOTAL 1.2 MG/DL (0.1-1.0); BLOOD UREA NITROGEN 12 MG/DL (7-18); BUN/CREATININE RATIO 15.8 (5.4-32.0); CALCIUM 7.8 MG/DL (8.5-10.1); CHLORIDE 104 MMOL/L (99-107); CREATININE 0.76 MG/DL (0.60-1.10); GLUCOSE 88 MG/DL (70-104); PLATELET ESTIMATE DECREASED; POTASSIUM 3.7 MMOL/L (3.5-5.1); SODIUM 141 MMOL/L (135-145); TOTAL CARBON DIOXIDE 23.3 MMOL/L (24-32); TOTAL PROTEIN 7.2 G/DL (6.4-8.2); eGFR > 90 ML/MIN
[2020-09-18 11:32] LABS: POLYCHROMASIA FEW
[2020-09-18 11:34] LABS: ETHANOL < 0.010 GM/DL (0.0-0.010); TROPONIN I < 0.04 NG/ML (0.0-0.05)
[2020-09-18] MEDS ORDERED: magnesium oxide 400mg tablet PO ONE (12:45)
[2020-09-18] MEDS ORDERED: CHLO25CA10 PO (12:49)
[2020-09-18 13:02] LABS: MAGNESIUM 1.9 MG/DL (1.5-2.4)
[2020-09-18 14:10] VITALS: BP 121/85
== END 2020-09-18 14:11 | disposition home or self-care (01) ==
LOC: ER 09:45
DX: F10.239 Alcohol dependence with withdrawal, unspecified (principal); D61.818 Other pancytopenia; K21.9 Gastro-esophageal reflux disease without esophagitis; F41.9 Anxiety disorder, unspecified; F32.9 Major depressive disorder, single episode, unspecified; Z98.890 Other specified postprocedural states; Z72.89 Other problems related to lifestyle; Z56.0 Unemployment, unspecified; Z59.0 Homelessness; Z79.899 Other long term (current) drug therapy; Y90.0 Blood alcohol level of less than 20 mg/100 ml
CPT/HCPCS: 36415; 71045; 80053; 80305; 80320; 81001; 83735; 84484; 85008; 85025; 93005; 96374; 99285; J2060; J7030

== ENCOUNTER 2020-09-19 18:57 | Emergency (ER) | payer MEDICAID ==
[~2020-09-19] VITALS: Ht 175.3 cm; Wt 84.1 kg
[~2020-09-19 18:57] MED LIST changes: +CHLO25CA10 PO
[2020-09-19] MEDS ORDERED: normal saline 1000ML IV soln IVB ONE (21:35)
[2020-09-19] MEDS ORDERED: ondansetron/PF 4mg/2ml inj IV ONE (21:35)
[2020-09-19 21:56] LABS: BASOPHILS % (AUTO) 1.1 % (0-1); EOSINOPHILS # (AUTO) 0.2 X10'3 (0-0.9); EOSINOPHILS % (AUTO) 3.9 % (0-6); HEMATOCRIT 28.5 % (42.0-52.0); HEMOGLOBIN 9.4 g/dl (14.0-17.9); LYMPHOCYTES # (AUTO) 1.2 X10'3 (1.1-4.8); LYMPHOCYTES % (AUTO) 27.2 % (21-51); MEAN CORPUSCULAR HEMOGLOBIN 28.2 PG (27.0-31.0); MEAN CORPUSCULAR HGB CONC 33.1 g/dL (33.0-36.5); MEAN CORPUSCULAR VOLUME 85.3 FL (78-98); MEAN PLATELET VOLUME 6.9 FL (7.4-10.4); MONOCYTES # (AUTO) 0.6 X10'3 (0-0.9); MONOCYTES % (AUTO) 12.7 % (2-12); NEUTROPHILS # (AUTO) 2.4 X10'3 (1.8-7.7); NEUTROPHILS % (AUTO) 55.1 % (42-75); PLATELET COUNT 128 X10'3 (140-440); RED BLOOD COUNT 3.35 X10'6 (4.70-6.10); RED CELL DISTRIBUTION WIDTH 21.8 % (11.5-14.5); WHITE BLOOD COUNT 4.4 X10'3 (4.5-11.0)
[2020-09-19 22:13] LABS: ALANINE AMINOTRANSFERASE 35 U/L (12-78); ALBUMIN 3.2 G/DL (3.4-5.0); ALBUMIN/GLOBULIN RATIO 0.8 (1.1-1.5); ALKALINE PHOSPHATASE 80 IU/L (46-116); ANION GAP 8 (8-16); ASPARTATE AMINO TRANSFERASE 50 U/L (10-37); BILIRUBIN,TOTAL 0.5 MG/DL (0.1-1.0); BLOOD UREA NITROGEN 10 MG/DL (7-18); CALCIUM 8.6 MG/DL (8.5-10.1); CHLORIDE 101 MMOL/L (99-107); CREATININE 1.11 MG/DL (0.60-1.10); GLUCOSE 81 MG/DL (70-104); LIPASE 217 U/L (73-393); POTASSIUM 3.5 MMOL/L (3.5-5.1); SODIUM 138 MMOL/L (135-145); TOTAL CARBON DIOXIDE 28.8 MMOL/L (24-32); TOTAL PROTEIN 7.3 G/DL (6.4-8.2); eGFR 68 ML/MIN
[2020-09-19 22:42] LABS: CLARITY,URINE CLEAR (Clear); COLOR,URINE YELLOW (Yellow); GLUCOSE, URINE NEGATIVE (Neg); KETONES,URINE TRACE mg/dl (Neg); LEUKOCYTE ESTERASE ,URINE NEGATIVE (Neg); NITRITES, URINE NEGATIVE (Neg); OCCULT BLOOD,URINE NEGATIVE (Neg); PH,URINE 5.5 (4.8-8.0); PROTEIN,URINE NEGATIVE (Neg); UROBILINOGEN,URINE 0.2 E.U/dL (0.2-1.0)
[2020-09-19 22:57] LABS: UA COLLECTION TYPE URINAL
[2020-09-19] MEDS ORDERED: pantoprazole 40 MG vial IV ONE (23:00)
[2020-09-19 23:41] LABS: PARTIAL THROMBOPLASTIN TIME 26 SECONDS (22-32)
[2020-09-20] MEDS ORDERED: ONDA4TAB6 PO (00:03)
[2020-09-20] MEDS ORDERED: PANT-47 PO (00:03)
[2020-09-20 00:42] VITALS: BP 114/89
== END 2020-09-20 00:46 | disposition home or self-care (01) ==
LOC: ER 18:58
DX: R11.2 Nausea with vomiting, unspecified (principal); M79.642 Pain in left hand; K21.9 Gastro-esophageal reflux disease without esophagitis; F41.9 Anxiety disorder, unspecified; F32.9 Major depressive disorder, single episode, unspecified; F10.10 Alcohol abuse, uncomplicated; Z59.0 Homelessness; Z56.0 Unemployment, unspecified; Z98.890 Other specified postprocedural states; Z79.899 Other long term (current) drug therapy; Y90.9 Presence of alcohol in blood, level not specified
CPT/HCPCS: 36415; 71045; 80053; 81003; 83690; 85025; 85610; 85730; 86885; 86900; 86901; 93005; 96374; 96375; 99285; C9113; J2405; J7030

== ENCOUNTER 2020-09-20 19:23 | Emergency (ER) | payer MEDICAID ==
[~2020-09-20 19:23] MED LIST changes: +ONDA4TAB6 PO; +PANT-47 PO
== END 2020-09-20 22:36 | disposition left against medical advice (07) ==
LOC: ER 19:24
DX: Z53.21 Procedure and treatment not carried out due to patient leaving prior to being seen by health care provider (principal)

== ENCOUNTER 2020-09-23 20:33 | Emergency (ER) | payer MEDICAID ==
--- NOTE | 2020-09-23 22:28 | NUR ---
Pt. has no complaint, only asking to take a shower.
--- NOTE | 2020-09-23 22:32 | NUR ---
SECURITY ASKED TO ESCORT PT OFF PROPERTY. HE HAD NO MEDICAL COMPLAINT AND IS ONLY ASKING TO TAKE A SHOWER.
== END 2020-09-23 22:37 | disposition left against medical advice (07) ==
LOC: ER 20:34
DX: R10.30 Lower abdominal pain, unspecified (principal); Z53.21 Procedure and treatment not carried out due to patient leaving prior to being seen by health care provider

== ENCOUNTER 2022-01-31 01:26 | Inpatient (IN) | payer MEDICAID ==
[~2022-01-31] VITALS: Ht 175.3 cm; Wt 90.9 kg
[~2022-01-31 01:26] MED LIST changes: +normal saline 1000ML IV soln IVB ONE; +octreotide inj. 500 MCG in normal saline 100ml IV soln 97.5 ML IV SCH; +ondansetron/PF 4mg/2ml inj IV ONE; +pantoprazole 40MG/NS 100ML BAG 100 ML IV ONE; +pantoprazole 40mg IV 80 MG in normal saline 100ml IV soln 100 ML IV ONE; +thiamine 100mg/ml 2ml inj. IV ONE
[2022-01-31] MEDS ORDERED: pantoprazole 40MG/NS 100ML BAG 100 ML IV ONE ×2 (01:37→01:55)
[2022-01-31 01:54] LABS: BASOPHILS # (AUTO) 0.1 X10'3 (0-0.2); BASOPHILS % (AUTO) 0.8 % (0-1); EOSINOPHILS # (AUTO) 0.1 X10'3 (0-0.9); EOSINOPHILS % (AUTO) 0.9 % (0-6); HEMATOCRIT 38.6 % (42.0-52.0); HEMOGLOBIN 12.7 g/dl (14.0-17.9); LYMPHOCYTES # (AUTO) 2.7 X10'3 (1.1-4.8); LYMPHOCYTES % (AUTO) 26.3 % (21-51); MEAN CORPUSCULAR HEMOGLOBIN 25.7 PG (27.0-31.0); MEAN CORPUSCULAR HGB CONC 32.8 g/dL (33.0-36.5); MEAN CORPUSCULAR VOLUME 78.2 FL (78-98); MEAN PLATELET VOLUME 7.4 FL (7.4-10.4); MONOCYTES # (AUTO) 1.1 X10'3 (0-0.9); MONOCYTES % (AUTO) 10.4 % (2-12); NEUTROPHILS # (AUTO) 6.4 X10'3 (1.8-7.7); NEUTROPHILS % (AUTO) 61.6 % (42-75); PLATELET COUNT 478 X10'3 (140-440); RED BLOOD COUNT 4.94 X10'6 (4.70-6.10); RED CELL DISTRIBUTION WIDTH 19.4 % (11.5-14.5); WHITE BLOOD COUNT 10.4 X10'3 (4.5-11.0)
[2022-01-31 02:00] LABS: APTT 26 SECONDS (22-32)
[2022-01-31 02:06] LABS: ALANINE AMINOTRANSFERASE 21 U/L (12-78); ALBUMIN 3.3 G/DL (3.4-5.0); ALBUMIN/GLOBULIN RATIO 0.7 (1.1-1.5); ALKALINE PHOSPHATASE 65 IU/L (46-116); ANION GAP 12 (8-16); ASPARTATE AMINO TRANSFERASE 22 U/L (10-37); BILIRUBIN,TOTAL 0.2 MG/DL (0.1-1.0); BLOOD UREA NITROGEN 22 MG/DL (7-18); BUN/CREATININE RATIO 19.1 (5.4-32.0); CALCIUM 10.5 MG/DL (8.5-10.1); CHLORIDE 102 MMOL/L (99-107); CREATININE 1.15 MG/DL (0.60-1.10); ETHANOL 0.103 GM/DL (0.0-0.010); GLUCOSE 106 MG/DL (70-104); LIPASE 61 U/L (73-393); POTASSIUM 3.7 MMOL/L (3.5-5.1); SODIUM 141 MMOL/L (135-145); TOTAL CARBON DIOXIDE 27.4 MMOL/L (24-32); TOTAL PROTEIN 7.8 G/DL (6.4-8.2); eGFR 65 ML/MIN
[2022-01-31] MEDS ORDERED: LORazepam 2 mg/ml vial IV ONE (02:25)
[2022-01-31 03:12] LABS: PLATELET ESTIMATE INCREASED
[2022-01-31 03:13] LABS: ANISOCYTOSIS 2+; MICROCYTOSIS 1+
[2022-01-31] MEDS: atenolol 50mg tablet PO SCH ×2 (03:15→08:04)
[2022-01-31] MEDS ORDERED: magnesium 4gm in 100ml NS 100 ML IV PRN (03:20)
[2022-01-31] MEDS ORDERED: morphine 2 MG/ML inj. syringe IV PRN ×2 (03:20)
[2022-01-31] MEDS ORDERED: HYDROcodone/acetaminophen 5mg/325mg tablet PO PRN (03:20)
[2022-01-31] MEDS ORDERED: ondansetron/PF 4mg/2ml inj IV PRN (03:20)
[2022-01-31] MEDS ORDERED: magnesium Cl slow-release 64mg tablet PO PRN (03:20)
[2022-01-31] MEDS ORDERED: potassium Cl 20 mEq SR tablet PO PRN (03:20)
[2022-01-31] MEDS ORDERED: acetaminophen 325mg tablet PO PRN ×2 (03:20)
[2022-01-31] MEDS ORDERED: potassium Cl 40MEQ/1/2NS 520ml 520 ML IV PRN (03:20)
[2022-01-31 03:46] LABS: OCCULT BLOOD STOOL NEGATIVE (Neg)
[2022-01-31] MEDS: normal saline 1000ml 1,000 ML IV SCH ×3 (07:24→18:47)
[2022-01-31] MEDS: K and/or MAG REPLACEMENT MC SCH ×2 (08:00→19:01)
[2022-01-31] MEDS ORDERED: pantoprazole 40MG/NS 100ML BAG 100 ML IV SCH (08:00)
[2022-01-31] MEDS: multivitamins, therapeutics tablet PO SCH (08:04)
--- NOTE | 2022-01-31 11:58 | NUR ---
Patient in room ED 15. I have received report from EVA SANTOS FROM ER and had the opportunity to ask questions and assume patient care.
[2022-01-31 12:40] VITALS: BP 98/61
[2022-01-31] MEDS: LORazepam 2 mg/ml vial IV PRN ×2 (13:05→22:27)
[2022-01-31 18:00] VITALS: BP 94/58
[2022-01-31] MEDS: octreotide inj. 500 MCG in normal saline 100ml IV soln 97.5 ML IV SCH ×2 (19:15→20:42)
[2022-01-31] MEDS: pantoprazole 40MG/NS 100ML BAG 100 ML IV SCH (20:43)
[2022-01-31] MEDS ORDERED: temazepam 15mg capsule PO PRN (21:00)
[2022-01-31 22:00] VITALS: BP 96/62
[2022-02-01] VITALS (16 sets, daily range): BP systolic 85–152; BP diastolic 52–92
[2022-02-01] MEDS: pantoprazole 40MG/NS 100ML BAG 100 ML IV SCH (01:30)
[2022-02-01] MEDS: normal saline 1000ml 1,000 ML IV SCH ×2 (03:44→19:20)
--- NOTE | 2022-02-01 06:26 | NUR ---
Problems reprioritized. Patient report given, questions answered & plan of care reviewed with EVA Hadley.
[2022-02-01 06:44] LABS: BASOPHILS # (AUTO) 0.1 X10'3 (0-0.2); BASOPHILS % (AUTO) 1.5 % (0-1); EOSINOPHILS # (AUTO) 0.2 X10'3 (0-0.9); EOSINOPHILS % (AUTO) 3.2 % (0-6); HEMOGLOBIN 9.6 g/dl (14.0-17.9); LYMPHOCYTES # (AUTO) 2.1 X10'3 (1.1-4.8); LYMPHOCYTES % (AUTO) 38.5 % (21-51); MEAN CORPUSCULAR HEMOGLOBIN 25.2 PG (27.0-31.0); MEAN CORPUSCULAR HGB CONC 31.9 g/dL (33.0-36.5); MEAN CORPUSCULAR VOLUME 78.9 FL (78-98); MEAN PLATELET VOLUME 7.5 FL (7.4-10.4); MONOCYTES # (AUTO) 0.8 X10'3 (0-0.9); NEUTROPHILS # (AUTO) 2.4 X10'3 (1.8-7.7); NEUTROPHILS % (AUTO) 42.8 % (42-75); PLATELET COUNT 353 X10'3 (140-440); RED CELL DISTRIBUTION WIDTH 19.1 % (11.5-14.5); WHITE BLOOD COUNT 5.5 X10'3 (4.5-11.0)
--- NOTE | 2022-02-01 06:48 | NUR ---
Patient in room [facility]EN 357. I have received report from Lhu VELASQUEZ and had the opportunity to ask questions and assume patient care.
[2022-02-01 07:24] LABS: ALANINE AMINOTRANSFERASE 15 U/L (12-78); ALBUMIN 2.3 G/DL (3.4-5.0); ALBUMIN/GLOBULIN RATIO 0.8 (1.1-1.5); ALKALINE PHOSPHATASE 55 IU/L (46-116); ANION GAP 4 (8-16); ASPARTATE AMINO TRANSFERASE 16 U/L (10-37); BILIRUBIN,TOTAL 0.4 MG/DL (0.1-1.0); BLOOD UREA NITROGEN 13 MG/DL (7-18); CHLORIDE 107 MMOL/L (99-107); CREATININE 0.93 MG/DL (0.60-1.10); GLUCOSE 97 MG/DL (70-104); LIPASE 53 U/L (73-393); MAGNESIUM 1.5 MG/DL (1.5-2.4); POTASSIUM 3.8 MMOL/L (3.5-5.1); SODIUM 139 MMOL/L (135-145); TOTAL PROTEIN 5.3 G/DL (6.4-8.2); eGFR 83 ML/MIN
[2022-02-01] MEDS ORDERED: fentaNYL/PF 50MCG/1 ML 2ML syringe ONE (07:32)
[2022-02-01] MEDS ORDERED: MIDAZolam 1 MG/ML 5ML VIAL ONE (07:32)
[2022-02-01] MEDS ORDERED: LIDOcaine Viscous 15ml cup ONE (07:32)
[2022-02-01] MEDS ORDERED: CefTRIAXone/D5W-Rocephin 1gm 50 ML IV SCH (08:00)
[2022-02-01] MEDS: multivitamins, therapeutics tablet PO SCH (08:00)
[2022-02-01] MEDS: atenolol 50mg tablet PO SCH (08:00)
[2022-02-01] MEDS: K and/or MAG REPLACEMENT MC SCH ×2 (08:00→20:00)
--- NOTE | 2022-02-01 08:00 | NUR ---
Help Bp medication Tenormin (Atenolol) due to decreased BP. BP: 96/59 HR:62.
--- NOTE | 2022-02-01 08:30 | NUR ---
Down to Gi lab for procedure EGD.
--- NOTE | 2022-02-01 10:00 | NUR ---
Pt. returned from GI Lab tucked into bed, post op vitals initiated. Addendum: 02/01/22 at 1027 by Leonie James RN Recieved report from Beatriz VELASQUEZ.
--- NOTE | 2022-02-01 10:29 | NUR ---
PAGER ID: [phone] MESSAGE: [phone] Leonie- Pt. 357B Held atenolol due to decreased BP. BP: 96/59 HR: 62. Did you still want to continue this med?
[2022-02-01 11:12] LABS: BASOPHILS # (AUTO) 0.1 X10'3 (0-0.2); BASOPHILS % (AUTO) 1.2 % (0-1); EOSINOPHILS # (AUTO) 0.2 X10'3 (0-0.9); EOSINOPHILS % (AUTO) 2.7 % (0-6); HEMATOCRIT 28.6 % (42.0-52.0); LYMPHOCYTES # (AUTO) 1.8 X10'3 (1.1-4.8); LYMPHOCYTES % (AUTO) 28.9 % (21-51); MEAN CORPUSCULAR HGB CONC 31.6 g/dL (33.0-36.5); MEAN PLATELET VOLUME 7.4 FL (7.4-10.4); MONOCYTES # (AUTO) 0.8 X10'3 (0-0.9); NEUTROPHILS # (AUTO) 3.5 X10'3 (1.8-7.7); NEUTROPHILS % (AUTO) 54.2 % (42-75); PLATELET COUNT 322 X10'3 (140-440); RED BLOOD COUNT 3.62 X10'6 (4.70-6.10); RED CELL DISTRIBUTION WIDTH 19.3 % (11.5-14.5); WHITE BLOOD COUNT 6.4 X10'3 (4.5-11.0)
--- NOTE | 2022-02-01 12:30 | NUR ---
tire and lube technician called for a second time to alert of pt. HR being in the the 30's- 40's. Will make MD aware of situation.
--- NOTE | 2022-02-01 12:39 | NUR ---
Pageji RODRIGUEZ regarding pt. low HR PAGER ID: [phone] MESSAGE: [phone] Leonie- Pt. 357B second call from [employer] stating HR in the 30's-40's. Current vitals BP: 104/67 HR: 49 spO2 98% on 2L.
--- NOTE | 2022-02-01 12:41 | NUR ---
called back regarding pt. HR, would like a stat EKG.
[2022-02-01] MEDS ORDERED: DICY10CA14 PO (16:07)
[2022-02-01] MEDS ORDERED: QUET25TA PO (16:07)
[2022-02-01] MEDS ORDERED: HYDR-3686 PO (16:07)
[2022-02-01] MEDS ORDERED: TRAZ-251 PO (16:07)
[2022-02-01] MEDS ORDERED: FLUO-167 PO (16:07)
[2022-02-01] MEDS ORDERED: GABA300C PO (16:07)
[2022-02-01] MEDS ORDERED: PANT-47 PO (16:07)
[2022-02-01] MEDS ORDERED: FOLI1TAB27 PO (16:07)
[2022-02-01] MEDS ORDERED: NALT50TA PO (16:07)
--- NOTE | 2022-02-01 18:30 | NUR ---
Problems reprioritized. Patient report given, questions answered & plan of care reviewed with Trevor VELASQUEZ.
--- NOTE | 2022-02-01 18:35 | NUR ---
Patient in room [facility] 357. I have received report from NADINE VELASQUEZ and had the opportunity to ask questions and assume patient care.
[2022-02-01] MEDS: pantoprazole 40mg Tablet.DR PO SCH (20:10)
[2022-02-01] MEDS: HYDROcodone/acetaminophen 10/325mg tab PO PRN (20:11)
[2022-02-01] MEDS: LORazepam 1 MG tablet PO PRN (20:11)
[2022-02-01 22:43] LABS: BASOPHILS # (AUTO) 0.1 X10'3 (0-0.2); BASOPHILS % (AUTO) 1.3 % (0-1); EOSINOPHILS # (AUTO) 0.1 X10'3 (0-0.9); EOSINOPHILS % (AUTO) 2.7 % (0-6); HEMATOCRIT 29.9 % (42.0-52.0); HEMOGLOBIN 9.2 g/dl (14.0-17.9); LYMPHOCYTES # (AUTO) 1.8 X10'3 (1.1-4.8); LYMPHOCYTES % (AUTO) 34.1 % (21-51); MEAN CORPUSCULAR VOLUME 80.7 FL (78-98); MEAN PLATELET VOLUME 7.5 FL (7.4-10.4); MONOCYTES # (AUTO) 0.6 X10'3 (0-0.9); MONOCYTES % (AUTO) 11.3 % (2-12); NEUTROPHILS # (AUTO) 2.7 X10'3 (1.8-7.7); NEUTROPHILS % (AUTO) 50.6 % (42-75); PLATELET COUNT 343 X10'3 (140-440); RED CELL DISTRIBUTION WIDTH 19.1 % (11.5-14.5); WHITE BLOOD COUNT 5.4 X10'3 (4.5-11.0)
[2022-02-02 00:19] LABS: ANISOCYTOSIS 2+; PLATELET ESTIMATE NORMAL; POLYCHROMASIA FEW
[2022-02-02 00:20] LABS: MICROCYTOSIS 1+
[2022-02-02] MEDS: normal saline 1000ml 1,000 ML IV SCH ×3 (00:43→20:08)
[2022-02-02] MEDS: octreotide inj. 500 MCG in normal saline 100ml IV soln 97.5 ML IV SCH (04:35)
--- NOTE | 2022-02-02 06:17 | NUR ---
Problems reprioritized. Patient report given, questions answered & plan of care reviewed with BLAKE VELASQUEZ.
[2022-02-02 06:48] LABS: BASOPHILS # (AUTO) 0.1 X10'3 (0-0.2); BASOPHILS % (AUTO) 1.1 % (0-1); EOSINOPHILS # (AUTO) 0.2 X10'3 (0-0.9); EOSINOPHILS % (AUTO) 3.6 % (0-6); HEMATOCRIT 29.2 % (42.0-52.0); HEMOGLOBIN 9.3 g/dl (14.0-17.9); LYMPHOCYTES % (AUTO) 34.3 % (21-51); MEAN CORPUSCULAR HEMOGLOBIN 25.3 PG (27.0-31.0); MEAN CORPUSCULAR HGB CONC 31.8 g/dL (33.0-36.5); MEAN CORPUSCULAR VOLUME 79.7 FL (78-98); MONOCYTES # (AUTO) 0.6 X10'3 (0-0.9); MONOCYTES % (AUTO) 11.3 % (2-12); NEUTROPHILS # (AUTO) 2.8 X10'3 (1.8-7.7); NEUTROPHILS % (AUTO) 49.7 % (42-75); PLATELET COUNT 340 X10'3 (140-440); RED BLOOD COUNT 3.66 X10'6 (4.70-6.10); RED CELL DISTRIBUTION WIDTH 19.7 % (11.5-14.5); WHITE BLOOD COUNT 5.7 X10'3 (4.5-11.0)
[2022-02-02 06:57] LABS: ALANINE AMINOTRANSFERASE 19 U/L (12-78); ALBUMIN 2.2 G/DL (3.4-5.0); ALBUMIN/GLOBULIN RATIO 0.7 (1.1-1.5); ALKALINE PHOSPHATASE 52 IU/L (46-116); ANION GAP 4 (8-16); ASPARTATE AMINO TRANSFERASE 19 U/L (10-37); BILIRUBIN,TOTAL 0.3 MG/DL (0.1-1.0); BLOOD UREA NITROGEN 9 MG/DL (7-18); BUN/CREATININE RATIO 9.9 (5.4-32.0); CHLORIDE 108 MMOL/L (99-107); CREATININE 0.91 MG/DL (0.60-1.10); GLUCOSE 92 MG/DL (70-104); LIPASE 85 U/L (73-393); MAGNESIUM 1.6 MG/DL (1.5-2.4); PHOSPHORUS 2.4 MG/DL (2.3-4.5); POTASSIUM 3.3 MMOL/L (3.5-5.1); SODIUM 140 MMOL/L (135-145); TOTAL CARBON DIOXIDE 28.1 MMOL/L (24-32); TOTAL PROTEIN 5.2 G/DL (6.4-8.2); eGFR 85 ML/MIN
--- NOTE | 2022-02-02 07:00 | NUR ---
Patient in room MAREN 357. I have received report from Riri Menezes RN and had the opportunity to ask questions and assume patient care.
[2022-02-02] MEDS: K and/or MAG REPLACEMENT MC SCH ×2 (07:16→20:00)
[2022-02-02 07:30] VITALS: BP 103/68
[2022-02-02 07:35] LABS: ANISOCYTOSIS 2+; ELLIPTOCYTES FEW; MICROCYTOSIS 1+; PLATELET ESTIMATE NORMAL
[2022-02-02] MEDS: multivitamins, therapeutics tablet PO SCH (07:51)
[2022-02-02] MEDS: pantoprazole 40mg Tablet.DR PO SCH ×2 (07:51→20:07)
[2022-02-02] MEDS: potassium Cl 20 mEq SR tablet PO PRN ×3 (07:52→21:43)
[2022-02-02] MEDS: atenolol 25mg tablet PO SCH (08:00)
[2022-02-02] MEDS: LORazepam 1 MG tablet PO PRN ×3 (09:06→20:07)
[2022-02-02 09:56] VITALS: BP 114/60
[2022-02-02 10:20] VITALS: BP 106/65
[2022-02-02 11:24] LABS: BASOPHILS % (AUTO) 0.9 % (0-1); EOSINOPHILS # (AUTO) 0.1 X10'3 (0-0.9); EOSINOPHILS % (AUTO) 2.8 % (0-6); HEMATOCRIT 29.3 % (42.0-52.0); HEMOGLOBIN 9.3 g/dl (14.0-17.9); LYMPHOCYTES # (AUTO) 1.6 X10'3 (1.1-4.8); LYMPHOCYTES % (AUTO) 31.5 % (21-51); MEAN CORPUSCULAR HEMOGLOBIN 25.1 PG (27.0-31.0); MEAN CORPUSCULAR HGB CONC 31.7 g/dL (33.0-36.5); MEAN CORPUSCULAR VOLUME 79.3 FL (78-98); MEAN PLATELET VOLUME 7.3 FL (7.4-10.4); MONOCYTES # (AUTO) 0.7 X10'3 (0-0.9); NEUTROPHILS # (AUTO) 2.7 X10'3 (1.8-7.7); NEUTROPHILS % (AUTO) 51.8 % (42-75); PLATELET COUNT 337 X10'3 (140-440); RED CELL DISTRIBUTION WIDTH 19.3 % (11.5-14.5); WHITE BLOOD COUNT 5.2 X10'3 (4.5-11.0)
--- NOTE | 2022-02-02 12:25 | NUR ---
Met with patient in regards to alcohol use and to see if patient wanted any resources for treatment options. Patient has an intake appointment for an inpatient rehab in [place] today. Patient hasn't been in contact with them since he has been in the hospital so I discussed with patient to call them and let them know he is here and see if he can get another appointment. I gave patient a list of resources and my card to call me with any questions.
--- NOTE | 2022-02-02 13:21 | NUR ---
Student documentation: I have reviewed and agree with all interventions, assessments performed and documented by Radha NASH student.
[2022-02-02 14:30] VITALS: BP 100/66
[2022-02-02 18:00] VITALS: BP 114/73
--- NOTE | 2022-02-02 18:11 | NUR ---
Problems reprioritized. Patient report given, questions answered & plan of care reviewed with Riri Menezes RN.
--- NOTE | 2022-02-02 18:30 | NUR ---
Patient in room [facility] 357. I have received report from BLAKE VELASQUEZ and had the opportunity to ask questions and assume patient care.
[2022-02-02] MEDS: HYDROcodone/acetaminophen 10/325mg tab PO PRN (20:08)
[2022-02-02 22:00] VITALS: BP 86/50
--- NOTE | 2022-02-03 06:23 | NUR ---
Problems reprioritized. Patient report given, questions answered & plan of care reviewed with SHAWNA VELASQUEZ.
--- NOTE | 2022-02-03 06:35 | NUR ---
Patient in room MAR[facility] 357. I have received report from andre powell rn and had the opportunity to ask questions and assume patient care.
[2022-02-03 06:40] VITALS: BP 103/62
[2022-02-03] MEDS: octreotide inj. 500 MCG in normal saline 100ml IV soln 97.5 ML IV SCH (07:15)
[2022-02-03 07:30] LABS: ALANINE AMINOTRANSFERASE 17 U/L (12-78); ALBUMIN 2.2 G/DL (3.4-5.0); ALBUMIN/GLOBULIN RATIO 0.7 (1.1-1.5); ALKALINE PHOSPHATASE 56 IU/L (46-116); ANION GAP 6 (8-16); ASPARTATE AMINO TRANSFERASE 18 U/L (10-37); BILIRUBIN,TOTAL 0.2 MG/DL (0.1-1.0); BLOOD UREA NITROGEN 5 MG/DL (7-18); BUN/CREATININE RATIO 5.7 (5.4-32.0); CALCIUM 8.1 MG/DL (8.5-10.1); CHLORIDE 108 MMOL/L (99-107); CREATININE 0.87 MG/DL (0.60-1.10); GLUCOSE 100 MG/DL (70-104); LIPASE 125 U/L (73-393); MAGNESIUM 1.7 MG/DL (1.5-2.4); PHOSPHORUS 2.8 MG/DL (2.3-4.5); POTASSIUM 3.4 MMOL/L (3.5-5.1); SODIUM 140 MMOL/L (135-145); TOTAL PROTEIN 5.2 G/DL (6.4-8.2); eGFR 89 ML/MIN
[2022-02-03] MEDS: atenolol 25mg tablet PO SCH (08:00)
[2022-02-03] MEDS: K and/or MAG REPLACEMENT MC SCH (08:32)
[2022-02-03] MEDS: pantoprazole 40mg Tablet.DR PO SCH (08:35)
[2022-02-03] MEDS: multivitamins, therapeutics tablet PO SCH (08:35)
[2022-02-03] MEDS ORDERED: QUEtiapine 25mg tablet PO PRN (09:30)
[2022-02-03] MEDS ORDERED: hydrOXYzine 25 MG tablet PO PRN (09:30)
[2022-02-03] MEDS ORDERED: traZODone 50mg tablet PO PRN (09:30)
[2022-02-03] MEDS ORDERED: POTA-207 PO (09:55)
[2022-02-03] MEDS ORDERED: PANT40TA54 PO (09:55)
[2022-02-03 10:00] VITALS: BP 119/74
[2022-02-03] MEDS: normal saline 1000ml 1,000 ML IV SCH (11:20)
[2022-02-03] MEDS ORDERED: gabapentin 300mg capsule PO SCH (16:00)
[2022-02-03] MEDS ORDERED: THIA50TA10 PO (16:21)
[2022-02-03] MEDS ORDERED: METH-798 PO (16:21)
[2022-02-03] MEDS ORDERED: HYDR-3686 PO (16:21)
--- NOTE | 2022-02-03 16:46 | NUR ---
PT DISCHARGED IN STABLE CONDITION. CALLED [facility] FOR PT TO BE TAKEN TO HIS BROTHERS HOUSE. PT AWARE HE HAS RXS AT [facility] THAT NEED TO BE PICKED UP. PT HAS SET HIMSELF UP TO GO [place] [facility] [place] IV DCd. ALL BELONGINGS IN HAND. Addendum: 02/03/22 at 1647 by Breanna Andersen RN Amended: Links added.
[2022-02-04] MEDS ORDERED: thiamine 100mg tablet PO SCH (08:00)
[2022-02-04] MEDS ORDERED: folic acid 1mg tablet PO SCH ×2 (08:00)
[2022-02-04] MEDS ORDERED: naltrexone 50mg tablet PO SCH (08:00)
[2022-02-04] MEDS ORDERED: pantoprazole 40mg Tablet.DR PO SCH (08:00)
[2022-02-04] MEDS ORDERED: FLUoxetine 20mg capsule PO SCH (08:00)
== END 2022-02-03 16:38 | disposition home or self-care (01) | DRG 243 ==
LOC: ER 01:26 → UNDOADMIN 03:21 → ED HOLD 03:21 → SUR 3N 12:20
PROVIDERS: ADMIT Internal Medicine; ATTEND Family Medicine
PROC: 0DB58ZX Excision of Esophagus, Via Natural or Artificial Opening Endoscopic, Diagnostic (ICD-10-PCS; principal; 2022-02-01)
DX: K21.01 Gastro-esophageal reflux disease with esophagitis, with bleeding (principal); D64.9 Anemia, unspecified; F10.239 Alcohol dependence with withdrawal, unspecified; Z20.822 Contact with and (suspected) exposure to COVID-19; F15.90 Other stimulant use, unspecified, uncomplicated; K22.70 Barrett's esophagus without dysplasia; R07.9 Chest pain, unspecified; K29.20 Alcoholic gastritis without bleeding; E87.6 Hypokalemia; K44.9 Diaphragmatic hernia without obstruction or gangrene; N18.30 Chronic kidney disease, stage 3 unspecified; F32.A Depression, unspecified; F41.9 Anxiety disorder, unspecified; Z56.0 Unemployment, unspecified; Z59.00 Homelessness unspecified; Z87.891 Personal history of nicotine dependence; Z79.899 Other long term (current) drug therapy
CPT/HCPCS: 36415; 43239; 80053; 80320; 82140; 82272; 83690; 83735; 84100; 84484; 85008; 85025; 85610; 85730; 87081; 87635; 93005; 93306; 96365; 96366; 96368; 96375; 97116; 97161; 97530; 99152; 99285; A6258; C9113; G0378; J2060; J2250; J2354; J2405; J3010; J3411; J3490; J7030